=== PATIENT | male | born 1995 | race Caucasian/White ===

== ENCOUNTER 2018-12-01 07:05 | Emergency (ER) | payer MEDICAID ==
[~2018-12-01] VITALS: Ht 160 cm; Wt 118.2 kg
[2018-12-01 07:12] VITALS: Ht 160 cm; Wt 118.2 kg
[2018-12-01] MEDS ORDERED: TOPAMAX50 MG PO (07:15)
[2018-12-01] MEDS ORDERED: PROZAC20 MG PO (07:16)
[2018-12-01] MEDS ORDERED: VISTARIL25 MG PO (07:16)
[2018-12-01] MEDS ORDERED: BUPROPION HCL200 M1 PO (07:17)
[2018-12-01] MEDS ORDERED: RANITIDINE HCL150 M1 PO (07:17)
[2018-12-01] MEDS ORDERED: ZYPREXA15 MG PO (07:17)
[2018-12-01 07:48] LABS: BASOPHILS 0.2 % (0-2); EOSINOPHILS 0.4 % (0-7); HEMATOCRIT 47.6 % (42.0-54.0); HEMOGLOBIN 16.7 g/dL (13.5-17.5); IMMATURE GRANULOCYTES 0.5 % (0-5); LYMPHOCYTES 12.3 % (15-50); MCH 29.2 pg (26.0-34.0); MCHC 35.1 g/dL (31.0-37.0); MCV 83.2 fL (80.0-100.0); MEAN PLATELET VOLUME 12.3 fL (7.4-10.4); MONOCYTES 8.7 % (2-11); NEUTROPHILS 77.9 % (40-80); PLATELET COUNT 236 10x3/uL (130-400); RBC 5.72 10x6/uL (4.20-6.10); RDW 13.4 % (11.5-14.5)
[2018-12-01 08:07] LABS: ANION GAP 16.8 mmol/L (8-16); BILIRUBIN - TOTAL 0.53 mg/dL (0.2-1.3); CALCIUM 9.1 mg/dL (8.5-10.1); CARBON DIOXIDE 24.4 mmol/L (21.0-32.0); CREATININE - SERUM 1.3 mg/dL (0.6-1.3); POTASSIUM - SERUM 4.2 mmol/L (3.5-5.1); PROTEIN - SERUM 7.4 g/dL (6.4-8.2)
[2018-12-01 08:09] LABS: APPEARANCE TURBID (CLEAR); BILIRUBIN NEGATIVE (NEGATIVE); COLOR YELLOW (YELLOW); GLUCOSE NEGATIVE (NEGATIVE); KETONE NEGATIVE (NEGATIVE); NITRITE NEGATIVE (NEGATIVE); PROTEIN 1+ mg/dL (NEGATIVE); UROBILINOGEN NORMAL (NORMAL)
[2018-12-01 08:10] LABS: RED CELLS - URINE 0-5 /hpf (0-5); WHITE CELLS - URINE 0-5 /hpf (0-5)
[2018-12-01 08:11] LABS: AMORPHOUS SEDIMENT >1+ /lpf (NONE SEEN); BACTERIA FEW /hpf (NONE SEEN); CALCIUM OXALATE CRYSTALS 0-5 /hpf (NONE SEEN); EPITHELIAL CELLS NSEEN /hpf (0-5)
[2018-12-01] MEDS ORDERED: PROTONIX40 MG PO (09:51)
[2018-12-01] MEDS ORDERED: ZOFRAN8 MG PO (09:51)
[2018-12-01 10:33] VITALS: BP 115/67
== END 2018-12-01 10:31 | disposition home or self-care (01) ==
LOC: D.ER 07:05
PROVIDERS: Family Medicine
DX: K29.71 Gastritis, unspecified, with bleeding (principal); B34.9 Viral infection, unspecified; K21.9 Gastro-esophageal reflux disease without esophagitis